=== PATIENT | female | born 1990 | race Two or more races ===

== ENCOUNTER 2018-05-11 23:58 | Emergency (ER) | payer SELFPAY ==
[~2018-05-11] VITALS: Ht 167.6 cm; Wt 113.4 kg
[~2018-05-11 23:58] MED LIST: AMOX500C PO; FAMO20TA5 PO; HYDR-971 PO; LOPE2TAB27 PO; PROM25TA10 PO
[2018-05-12 01:45] VITALS: BP 161/70
[2018-05-12] MEDS ORDERED: PRED20TA PO (02:21)
[2018-05-12] MEDS ORDERED: DIPH25CA58 PO (02:21)
--- NOTE | 2018-05-12 02:21 | PHYS DOC ---
Past Medical History Past Medical History: Asthma, Other Additional Past Medical Histor: PCOS Past Surgical History: No Surgical History Alcohol Use: None Drug Use: None Adult General Chief Complaint Chief Complaint: INSECT BITE HPI HPI Patient is a 27 year old [f__sex] who presents with [] Review of Systems Review of Systems Constitutional: Denies fever or chills [] Eyes: Denies change in visual acuity, redness, or eye pain [] HENT: Denies nasal congestion or sore throat [] Respiratory: Denies cough or shortness of breath [] Cardiovascular: No additional information not addressed in HPI [] GI: Denies abdominal pain, nausea, vomiting, bloody stools or diarrhea [] : Denies dysuria or hematuria [] Musculoskeletal: Denies back pain or joint pain [] Integument: Denies rash or skin lesions [] Neurologic: Denies headache, focal weakness or sensory changes [] Endocrine: Denies polyuria or polydipsia [] All other systems were reviewed and found to be within normal limits, except as documented in this note. Allergies Allergies Allergies Coded Allergies Type Severity Reaction Last Updated Verified No Known Drug Allergies 03/15/16 No Physical Exam Physical Exam Constitutional: Well developed, well nourished, no acute distress, non-toxic appearance. [] HENT: Normocephalic, atraumatic, bilateral external ears normal, oropharynx moist, no oral exudates, nose normal. [] Eyes: PERRLA, EOMI, conjunctiva normal, no discharge. [] Neck: Normal range of motion, no tenderness, supple, no stridor. [] Cardiovascular:Heart rate regular rhythm, no murmur [] Lungs & Thorax: Bilateral breath sounds clear to auscultation [] Abdomen: Bowel sounds normal, soft, no tenderness, no masses, no pulsatile masses. [] Skin: Warm, dry, no erythema, no rash. [] Back: No tenderness, no CVA tenderness. [] Extremities: No tenderness, no cyanosis, no clubbing, ROM intact, no edema. [] Neurologic: Alert and oriented X 3, normal motor function, normal sensory function, no focal deficits noted. [] Psychologic: Affect normal, judgement normal, mood normal. [] Current Patient Data Vital Signs Vital Signs Date Time Temp Pulse Resp B/P (MAP) Pulse Ox O2 Delivery O2 Flow Rate FiO2 05/12/18 01:45 97.8 72 18 161/70 (100) 99 Room Air 97.8 EKG EKG [] Radiology/Procedures Radiology/Procedures [] Course & Med Decision Making Course & Med Decision Making Pertinent Labs and Imaging studies reviewed. (See chart for details) [] Dragon Disclaimer Dragon Disclaimer This electronic medical record was generated, in whole or in part, using a voice recognition dictation system. Departure Departure Impression: Primary Impression: Chigger bites Disposition: HOME, SELF-CARE Condition: STABLE Referrals: NO PCP (PCP) Patient Instructions: Insect Bite, [id number] Scripts Diphenhydramine Hcl (BENADRYL) 25 Mg Capsule 25 MG PO Q6HRS PRN for ITCHING, #20 CAP Prov: LEXIE DAMON DO 05/12/18 Prednisone (PREDNISONE) 20 Mg Tablet 2 TAB PO DAILY, #10 TAB Prov: LEXIE DAMON DO 05/12/18 LEXIE DAMON DO May 12, 2018 02:21
[2018-05-12] MEDS ORDERED: DEXAMETHASONE 4 MG TABLET PO ONE (02:45)
[2018-05-12] MEDS ORDERED: diphenhydrAMINE HCL 25 MG CAPSULE PO ONE (02:45)
== END 2018-05-12 02:40 | disposition home or self-care (01) ==
LOC: ER 23:58
DX: S90.861A Insect bite (nonvenomous), right foot, initial encounter (principal); S90.862A Insect bite (nonvenomous), left foot, initial encounter; S40.862A Insect bite (nonvenomous) of left upper arm, initial encounter; S40.861A Insect bite (nonvenomous) of right upper arm, initial encounter; J45.909 Unspecified asthma, uncomplicated; W57.XXXA Bitten or stung by nonvenomous insect and other nonvenomous arthropods, initial encounter; Y93.89 Activity, other specified; Y92.89 Other specified places as the place of occurrence of the external cause; Y99.8 Other external cause status
CPT/HCPCS: 99283; J8540; Q0163

== ENCOUNTER 2018-11-02 18:15 | Emergency (ER) | payer SELFPAY ==
[~2018-11-02] VITALS: Ht 167.6 cm; Wt 117.9 kg
[~2018-11-02 18:15] MED LIST changes: +DIPH25CA58 PO; +HYDR-3164 PO; -HYDR-971 PO; +PRED20TA PO
[2018-11-02 19:05] VITALS: BP 135/78
[2018-11-02] MEDS ORDERED: NAPR-514 PO (19:34)
[2018-11-02] MEDS ORDERED: CLIN150C14 PO (19:34)
[2018-11-02] MEDS ORDERED: MUPI22OI2 TP (19:34)
--- NOTE | 2018-11-02 19:34 | PHYS DOC ---
Past Medical History Past Medical History: Asthma, Other Additional Past Medical Histor: PCOS Past Surgical History: No Surgical History Alcohol Use: None Drug Use: None Adult General Chief Complaint Chief Complaint: FINGER INJURY HPI HPI Patient is a 28 year old female who presents to the ER with complaints of redness, swellng, and pain to the distal bed of her left middle finger for the last 3 days. She states earlier the area drained some pus after she soaked it in epsom salt. Pt denies any known injury, fever, numbness, tingling, or weakness of the hand. She rates the pain a 10/10 on the pain scale and reports there are no alleviating factors the pain increases if the area is touched. Review of Systems Review of Systems Constitutional: Denies fever or chills [] Eyes: Denies changes Musculoskeletal: Denies back pain or joint pain [] Integument: See HPI Neurologic: Denies focal weakness or sensory changes [] Allergies Allergies Allergies Coded Allergies Type Severity Reaction Last Updated Verified No Known Drug Allergies 03/15/16 No Physical Exam Physical Exam Constitutional: Well developed, well nourished, no acute distress, non-toxic appearance. [] HENT: Normocephalic, atraumatic, bilateral external ears normal, nose normal. [] Eyes: conjunctiva normal, no discharge. [] Neck: Normal range of motion, no stridor. [] Lungs & Thorax: Respirations even and unlabored, no retractions Skin: Warm, dry; erythema, 1+ edema, tenderness, and warmth to distal end of left middle finger, consistent with paronychia Extremities: No cyanosis, ROM intact Neurologic: Alert and oriented X 3, normal motor function, normal sensory function, no focal deficits noted. [] Psychologic: Affect normal, judgement normal, mood normal. [] Current Patient Data Vital Signs Vital Signs Date Time Temp Pulse Resp B/P (MAP) Pulse Ox O2 Delivery O2 Flow Rate FiO2 11/02/18 19:05 98.3 83 16 135/78 (97) 98 Room Air 98.3 EKG EKG [] Radiology/Procedures Radiology/Procedures 1920- left middle finger was cleansed with soap and water, an 18 gauge needle was used lift the cuticle and a moderate amount of bloody pus drained from the site. Pt tolerated the procedure well, no complications.[] Course & Med Decision Making Course & Med Decision Making Pertinent Labs and Imaging studies reviewed. (See chart for details) [] Dragon Disclaimer Dragon Disclaimer This electronic medical record was generated, in whole or in part, using a voice recognition dictation system. Departure Departure Impression: Primary Impression: Paronychia of finger of left hand Disposition: HOME, SELF-CARE Condition: STABLE Referrals: NO PCP (PCP) Patient Instructions: Paronychia, [id number] Additional Instructions: Fill the prescriptions and use as directed. Soak the affected finger in warm soapy water 4 times a day and as needed. Keep the area clean and dry. Follow up with your primary care doctor if symptoms persist, return to the ER if symptoms worsen. Scripts Mupirocin (MUPIROCIN OINTMENT) 22 Gm Oint...g. 1 GENEVIEVE TP TID for WOUND CARE for 7 Days, #1 TUBE 0 Refills Prov: ROBINA MARION APRN 11/02/18 Naproxen (NAPROXEN) 500 Mg Tablet 1 TAB PO BID PRN for PAIN for 10 Days, #20 TAB 0 Refills Prov: ROBINA MARION APRN 11/02/18 Clindamycin Hcl (CLINDAMYCIN HCL) 150 Mg Capsule 450 MG PO TID for 7 Days, #63 CAP 0 Refills Prov: ROBINA MARION APRN 11/02/18 ROBINA MARION APRN Nov 02, 2018 19:34
== END 2018-11-02 19:50 | disposition home or self-care (01) ==
LOC: ER 18:15
DX: L03.012 Cellulitis of left finger (principal); J45.909 Unspecified asthma, uncomplicated
CPT/HCPCS: 99283